=== PATIENT | female | born 1945 | race Two or more races ===

== ENCOUNTER 2017-11-29 08:37 | Outpatient (CLI) | payer OTHER ==
[~2017-11-29 08:37] MED LIST: AMOX1TAB12 PO; HYZAAR 100-121 UDTAB; INTESTINEX680 MG PO
== END 2017-11-29 08:50 | disposition home or self-care (01) ==
LOC: RAD 501 08:37
DX: J20.8 Acute bronchitis due to other specified organisms (principal); J45.21 Mild intermittent asthma with (acute) exacerbation; J32.8 Other chronic sinusitis

== ENCOUNTER 2020-11-07 09:27 | Outpatient (CLI) | payer OTHER | END 2020-11-07 09:35 | disposition home or self-care (01) | LOC: TOM 09:27 | PROVIDERS: ATTEND Internal Medicine Gastroenterology | DX: R10.84 Generalized abdominal pain (principal); D36.7 Benign neoplasm of other specified sites; K57.32 Diverticulitis of large intestine without perforation or abscess without bleeding ==

== ENCOUNTER → 2021-01-22 16:00 | Outpatient (CLI) | payer OTHER | END | disposition home or self-care (01) | LOC: PPH VACUNA 16:00 | PROVIDERS: ATTEND Emergency Medicine Pediatric Emergency Medicine | DX: Z23 Encounter for immunization (principal) ==

== ENCOUNTER 2021-02-07 08:57 | Outpatient (CLI) | payer OTHER | END 2021-02-07 09:08 | disposition home or self-care (01) | LOC: RAD 08:57 | DX: M25.531 Pain in right wrist (principal) ==

== ENCOUNTER 2022-05-27 07:23 | Outpatient (CLI) | payer OTHER | END 2022-05-27 07:30 | disposition home or self-care (01) | LOC: TOM 07:23 | PROVIDERS: ATTEND Internal Medicine Gastroenterology | DX: K57.32 Diverticulitis of large intestine without perforation or abscess without bleeding (principal) ==

== ENCOUNTER 2022-06-09 10:44 | Outpatient (CLI) | payer OTHER | END 2022-06-09 10:51 | disposition home or self-care (01) | LOC: SONOGRAMA 10:44 | PROVIDERS: ATTEND Family Medicine | DX: R94.6 Abnormal results of thyroid function studies (principal) ==

== ENCOUNTER → 2022-07-20 | Outpatient (CLI) | payer OTHER | END | disposition home or self-care (01) | LOC: SONOGRAMA 10:35 | PROVIDERS: ATTEND Pathology Anatomic Pathology & Clinical Pathology | DX: D34 Benign neoplasm of thyroid gland (principal); E04.1 Nontoxic single thyroid nodule; E04.9 Nontoxic goiter, unspecified; E07.9 Disorder of thyroid, unspecified; E04.2 Nontoxic multinodular goiter ==

== ENCOUNTER 2022-11-19 07:18 | Outpatient (CLI) | payer OTHER | END 2022-11-19 07:28 | disposition home or self-care (01) | LOC: TOM 07:18 | PROVIDERS: ATTEND Internal Medicine Gastroenterology | DX: K57.32 Diverticulitis of large intestine without perforation or abscess without bleeding (principal); R10.84 Generalized abdominal pain ==

== ENCOUNTER 2024-10-10 08:44 | Outpatient (CLI) | payer OTHER | END 2024-10-10 08:45 | disposition home or self-care (01) | LOC: SONOGRAMA 08:44 | PROVIDERS: ATTEND Internal Medicine | DX: E04.2 Nontoxic multinodular goiter (principal) ==

== ENCOUNTER 2024-11-22 07:09 | Outpatient (CLI) | payer OTHER | END 2024-11-22 07:10 | disposition home or self-care (01) | LOC: NUCLEAR 07:09 | PROVIDERS: ATTEND Internal Medicine | DX: E04.2 Nontoxic multinodular goiter (principal) | CPT/HCPCS: 78013; A9512 ==

== ENCOUNTER → 2024-11-23 07:28 | Outpatient (CLI) | payer OTHER | END | disposition home or self-care (01) | LOC: NUCLEAR 07:00 | PROVIDERS: ATTEND Internal Medicine | DX: E04.2 Nontoxic multinodular goiter (principal) | CPT/HCPCS: 78014; A9512 ==

== ENCOUNTER 2024-12-11 07:37 | Outpatient (CLI) | payer OTHER | END 2024-12-11 07:39 | disposition home or self-care (01) | LOC: SONOGRAMA 07:37 | PROVIDERS: ATTEND Pathology Anatomic Pathology & Clinical Pathology | DX: D34 Benign neoplasm of thyroid gland (principal); E07.89 Other specified disorders of thyroid; E04.2 Nontoxic multinodular goiter ==

== ENCOUNTER 2024-12-28 07:45 | Outpatient (CLI) | payer OTHER | END 2024-12-28 07:47 | disposition home or self-care (01) | LOC: TOM 07:45 | PROVIDERS: ATTEND Surgery | DX: C73 Malignant neoplasm of thyroid gland (principal) | CPT/HCPCS: 70492; Q9965 ==

== ENCOUNTER 2025-03-19 12:34 | Outpatient (CLI) | payer OTHER | END 2025-03-19 12:35 | disposition home or self-care (01) | LOC: TOM 12:34 | DX: S09.90XA Unspecified injury of head, initial encounter (principal) ==